=== PATIENT | female | born 1940 | race Caucasian/White ===

== ENCOUNTER → 2016-07-23 | Outpatient (CLI) | payer MEDICARE, OTHER ==
[~2016-07-23] MED LIST: ALDACTONE 25MG25 M1 PO; ASPIRIN 32325 MG/TAB PO; LIPITOR20 MG PO; MULTI VITAMINS1 TAB PO; OYSTER SHELL CA1 T22 PO; PRINIVIL20 MG PO; VALIUM 5MG T5 MG/TAB PO; VITAMIN D31000 IU PO; ZANTAC 150MG T150 MG PO
== END ==
LOC: COL.PUL 09:43
DX: R06.02 Shortness of breath (principal); R94.2 Abnormal results of pulmonary function studies

== ENCOUNTER 2016-09-10 14:00 | Inpatient (IN) | payer MEDICARE, OTHER ==
[~2016-09-10] VITALS: Ht 160 cm; Wt 56.8 kg
[2016-09-10 18:11] VITALS: BP 157/82; PULSE 90; TEMP 97.8
[2016-09-10] MEDS ORDERED: ALDACTONE 25MG25 M1 PO (18:22)
[2016-09-10] MEDS ORDERED: VALIUM 5MG T5 MG/TAB PO (18:23)
[2016-09-10] MEDS ORDERED: PRINIVIL20 MG PO (18:23)
[2016-09-10] MEDS ORDERED: ZANTAC 150MG T150 MG PO (18:24)
[2016-09-10] MEDS ORDERED: OYSTER SHELL CA1 T22 PO (18:26)
[2016-09-10] MEDS ORDERED: ASPIRIN 32325 MG/TAB PO (18:27)
[2016-09-10] MEDS ORDERED: VITAMIN D31000 IU PO (18:28)
[2016-09-10] MEDS ORDERED: MULTI VITAMINS1 TAB PO (18:29)
[2016-09-10] MEDS ORDERED: LIPITOR20 MG PO (18:30)
[2016-09-10 20:50] LABS: HEMATOCRIT 33.5 % (37.0-47.0); HEMOGLOBIN 10.7 g/dl (12.5-16.0)
[2016-09-10 22:14] VITALS: BP 135/76; PULSE 77; TEMP 98.2
[2016-09-11] VITALS (9 sets, daily range): BP systolic 110–154; BP diastolic 56–78; PULSE 76–85; TEMP 97.4–98.8
[2016-09-11 07:41] LABS: BASO % 0.7 % (0.0-2.0); GRAN # 5.1 (1.4-6.5); GRAN % 88.6 % (42.2-75.2); INR 1.1 (0.8-3.0); LYMPH # 0.5 (1.2-3.4); LYMPH % 8.9 % (20.0-51.0); MEAN CELL VOLUME 80 fl (80.0-100.0); MEAN CORPUSCULAR HGB CONC 31 g/dl (33.0-37.0); MEAN PLATELET VOLUME 10.6 fl (7.4-10.4); MONO # 0.1 (0.1-0.6); MONO % 0.9 % (1.7-9.3); PLATELET COUNT 332 K/mm3 (130-400); PROTHROMBIN TIME 12.2 SECONDS (9.7-12.8); RED BLOOD COUNT 4.45 M/mm3 (4.10-5.30); REDCELL DISTRIBUTION WIDTH-CV 17.3 % (11.5-14.5); WHITE BLOOD COUNT 5.7 K/mm3 (4.8-10.8)
[2016-09-11 07:58] LABS: ALBUMIN 4.1 gm/dL (3.5-5.0); CREATININE, serum 1.08 mg/dL (0.52-1.25); MAGNESIUM 1.8 mg/dL (1.6-2.3); POTASSIUM 4.2 mmol/L (3.4-5.0)
[2016-09-11 08:04] LABS: HEMATOCRIT 35.7 % (37.0-47.0); HEMOGLOBIN 11.1 g/dl (12.5-16.0); MEAN CORPUSCULAR HEMOGLOBIN 25 pg (27.0-31.0)
[2016-09-12] VITALS (7 sets, daily range): BP systolic 94–145; BP diastolic 47–74; PULSE 70–90; TEMP 97.4–98.1
[2016-09-12 06:51] LABS: BASO % 0.1 % (0.0-2.0); EOS % 0.1 % (0-4.0); GRAN # 13.3 (1.4-6.5); GRAN % 86.3 % (42.2-75.2); LYMPH # 0.7 (1.2-3.4); LYMPH % 4.8 % (20.0-51.0); MEAN CELL VOLUME 83 fl (80.0-100.0); MEAN CORPUSCULAR HGB CONC 30 g/dl (33.0-37.0); MEAN PLATELET VOLUME 11.3 fl (7.4-10.4); MONO # 1.2 (0.1-0.6); MONO % 7.9 % (1.7-9.3); PLATELET COUNT 256 K/mm3 (130-400); RED BLOOD COUNT 3.73 M/mm3 (4.10-5.30); REDCELL DISTRIBUTION WIDTH-CV 17.8 % (11.5-14.5); WHITE BLOOD COUNT 15.4 K/mm3 (4.8-10.8)
[2016-09-12 06:52] LABS: HEMOGLOBIN 9.4 g/dl (12.5-16.0); MEAN CORPUSCULAR HEMOGLOBIN 25 pg (27.0-31.0)
[2016-09-12 07:02] LABS: ALBUMIN 3.7 gm/dL (3.5-5.0); CALCIUM 8.3 mg/dL (8.4-10.2); CREATININE, serum 1.46 mg/dL (0.52-1.25); MAGNESIUM 1.8 mg/dL (1.6-2.3); PHOSPHOROUS 6.8 mg/dL (2.5-4.5); POTASSIUM 4.6 mmol/L (3.4-5.0)
[2016-09-13] VITALS (7 sets, daily range): BP systolic 89–148; BP diastolic 58–82; PULSE 69–96; TEMP 97.5–98.2
[2016-09-14 06:08] VITALS: BP 125/76; PULSE 64; TEMP 97.4
[2016-09-14 10:27] VITALS: BP 137/64; PULSE 84; TEMP 97.4
[2016-09-14 11:34] VITALS: BP 137/64; PULSE 84; TEMP 97.4
[2016-09-14 14:01] VITALS: BP 145/81; PULSE 81; TEMP 97.5
== END 2016-09-14 14:45 | disposition swing bed (61) | DRG 331 ==
LOC: SURG 14:00
PROVIDERS: Surgery
PROC: 0DTF0ZZ Resection of Right Large Intestine, Open Approach (ICD-10-PCS; principal; 2016-09-11 14:00)
DX: C18.2 Malignant neoplasm of ascending colon (principal); I10 Essential (primary) hypertension; D64.9 Anemia, unspecified; Z85.3 Personal history of malignant neoplasm of breast; Z87.891 Personal history of nicotine dependence
CPT/HCPCS: A4315; A9284; C9113; J0694; J1100; J1170; J1200; J1650; J1885; J2270; J2405; J2704; J2710; J3010; J7120; J7512; Q9967